=== PATIENT | female | born 1975 | race Caucasian/White ===

== ENCOUNTER 2017-07-29 13:11 | Emergency (ER) | payer BC ==
[2017-07-29 15:49] LABS: URINE BLOOD (Dip) POC 1+ (NEGATIVE); URINE GLUCOSE (Dip) POC Negative (NEGATIVE); URINE KETONES (Dip) POC Negative (NEGATIVE); URINE LEUKOCYTE EST (Dip) POC 1+ (NEGATIVE); URINE NITRITE (Dip) POC Negative (NEGATIVE); URINE TOTAL PROTEIN POC Negative (NEGATIVE)
[2017-07-29] MEDS: KETOROLAC 30 MG INJ IM (15:55)
[2017-07-29] MEDS: DIAZEPAM 2 MG TAB PO (16:31)
== END 2017-07-29 17:02 | disposition home or self-care (01) ==
LOC: FTE 13:11
DX: M54.5 Low back pain (principal); R07.9 Chest pain, unspecified
CPT/HCPCS: 71045; 72072; 72100; 81003; 93005; 96372; 99284-25

== ENCOUNTER 2017-10-18 12:07 | Day surgery (SDC) | payer BC ==
[2017-10-18] MEDS ORDERED: MIDAZOLAM 1 MG/ML 2 ML INJ (13:11)
[2017-10-18] MEDS ORDERED: LIDOCAINE 2% (SDV) 5 ML INJ (13:11)
[2017-10-18] MEDS ORDERED: PROPOFOL 20 ML (13:11)
== END 2017-10-18 15:36 | disposition home or self-care (01) ==
LOC: GIL 12:07
DX: K29.70 Gastritis, unspecified, without bleeding (principal); K44.9 Diaphragmatic hernia without obstruction or gangrene
CPT/HCPCS: 43239; 84703; 88305; 88312; 88313

== ENCOUNTER 2018-02-25 16:21 | Emergency (ER) | payer BC ==
[2018-02-25] MEDS: SOD CHLORIDE 0.9% 1,000 ML IV (17:14)
[2018-02-25] MEDS: KETOROLAC 15 MG INJ IV (17:15)
[2018-02-25] MEDS: LORAZEPAM 2 MG INJ IV (17:15)
[2018-02-25 17:17] LABS: ADD MAN DIFF? NO
[2018-02-25 17:20] LABS: BASOPHIL # 0.1 10^3/ul (0.0-0.1); BASOPHILS % 0.6 % (0.0-2.0); EOSINOPHILS # 0.1 10^3/ul (0.0-0.5); EOSINOPHILS % 0.7 % (0.0-7.0); HEMATOCRIT 38.3 % (37.0-47.0); HEMOGLOBIN 12.7 g/dl (12.0-16.0); LYMPHOCYTES # 3.1 10^3/ul (0.8-2.9); LYMPHOCYTES % 24.9 % (15.0-51.0); MEAN CORPUSCULAR HEMOGLOBIN 28.6 pg (29.0-33.0); MEAN CORPUSCULAR HGB CONC 33.2 g/dl (32.0-37.0); MEAN CORPUSCULAR VOLUME 86.3 fl (82.0-101.0); MEAN PLATELET VOLUME 8.6 fl (7.4-10.4); MONOCYTE # 0.8 10^3/ul (0.3-0.9); MONOCYTES % 6.1 % (0.0-11.0); NEUTROPHIL # 8.5 10^3/ul (1.6-7.5); NEUTROPHILS % 67.4 % (39.0-77.0); PLATELET COUNT 399 10^3/UL (140-415); RED BLOOD COUNT 4.44 10^6/ul (4.20-5.40); RED CELL DISTRIBUTION WIDTH 12.8 % (11.5-14.5)
[2018-02-25 17:20] LABS: WHITE BLOOD COUNT 12.6 10^3/ul (4.8-10.8)
[2018-02-25 17:25] LABS: ADD UMIC YES; UR ASCORBIC ACID NEGATIVE (NEGATIVE); UR BACTERIA FEW /HPF (NONE SEEN); UR BILIRUBIN (Dip) NEGATIVE (NEGATIVE); UR BLOOD (Dip) 1+ mg/dL (NEGATIVE); UR CLARITY CLEAR (CLEAR); UR COLOR COLORLESS (YELLOW); UR GLUCOSE (Dip) NEGATIVE (NEGATIVE); UR KETONES (Dip) NEGATIVE (NEGATIVE); UR LEUKOCYTE ESTERASE (Dip) NEGATIVE Leu/ul (NEGATIVE); UR NITRITE (Dip) NEGATIVE (NEGATIVE); UR RBC 2 /HPF (0-5); UR SPECIFIC GRAVITY (Dip) 1.002 (1.003-1.030); UR SQUAMOUS EPITHELIAL CELL FEW /HPF (FEW); UR TOTAL PROTEIN (Dip) NEGATIVE (NEGATIVE); UR UROBILINOGEN (Dip) NEGATIVE (NEGATIVE); UR WBC 0 /HPF (0-5)
[2018-02-25 17:40] LABS: ALANINE AMINOTRANSFERASE 103 IU/L (13-69); ALBUMIN 4.4 g/dl (3.3-4.9); ALBUMIN/GLOBULIN RATIO 1.12; ALKALINE PHOSPHATASE 96 IU/L (42-121); ANION GAP 14 (8-16); ASPARTATE AMINO TRANSFERASE 34 IU/L (15-46); BILIRUBIN,INDIRECT 0.3 mg/dl (0-1.1); BILIRUBIN,TOTAL 0.3 mg/dl (0.2-1.3); BLOOD UREA NITROGEN 8 mg/dl (7-20); CALCIUM 9.4 mg/dl (8.4-10.2); CARBON DIOXIDE 29 mmol/L (21-31); CHLORIDE 101 mmol/L (97-110); CREATININE 0.59 mg/dl (0.44-1.00); GLUCOSE 103 mg/dl (70-220); LIPASE 52 U/L (23-300); POTASSIUM 3.8 mmol/L (3.5-5.1); PROTIME 13.3 Sec (11.9-14.9); SODIUM 140 mmol/L (135-144); TOTAL PROTEIN 8.3 g/dl (6.1-8.1)
[2018-02-25 17:41] LABS: PARTIAL THROMBOPLASTIN TIME 32.5 Sec (23.0-35.0)
[2018-02-25 17:51] LABS: TROPONIN-I < 0.012 ng/ml (0.000-0.120)
[2018-02-25 19:01] LABS: D-DIMER 422.45 ng/ml (<460)
== END 2018-02-25 19:02 | disposition home or self-care (01) ==
LOC: E/R 16:21
DX: F32.1 Major depressive disorder, single episode, moderate (principal); F43.20 Adjustment disorder, unspecified
CPT/HCPCS: 36415; 71045; 80053; 81001; 83690; 84484; 84703; 85025; 85378; 85610; 85730; 93005; 96374; 96375; 99285-25

== ENCOUNTER 2018-04-02 10:44 | Emergency (ER) | payer BC ==
[2018-04-02] MEDS ORDERED: KETOROLAC 30 MG INJ IM (11:45)
[2018-04-02] MEDS ORDERED: ONDANSETRON (ODT) 4 MG TAB ODT (11:47)
[2018-04-02 12:15] LABS: ADD MAN DIFF? NO
[2018-04-02] MEDS: ONDANSETRON 4 MG INJ IV (12:16)
[2018-04-02] MEDS: KETOROLAC 30 MG INJ IV (12:17)
[2018-04-02 12:18] LABS: BASOPHILS % 0.4 % (0.0-2.0); EOSINOPHILS # 0.1 10^3/ul (0.0-0.5); EOSINOPHILS % 0.7 % (0.0-7.0); HEMATOCRIT 35.6 % (37.0-47.0); HEMOGLOBIN 12.1 g/dl (12.0-16.0); LYMPHOCYTES # 2.6 10^3/ul (0.8-2.9); LYMPHOCYTES % 26.1 % (15.0-51.0); MEAN CORPUSCULAR HEMOGLOBIN 29.6 pg (29.0-33.0); MEAN PLATELET VOLUME 8.4 fl (7.4-10.4); MONOCYTE # 0.5 10^3/ul (0.3-0.9); MONOCYTES % 5.1 % (0.0-11.0); NEUTROPHIL # 6.8 10^3/ul (1.6-7.5); NEUTROPHILS % 67.5 % (39.0-77.0); PLATELET COUNT 410 10^3/UL (140-415); RED BLOOD COUNT 4.09 10^6/ul (4.20-5.40); RED CELL DISTRIBUTION WIDTH 12.8 % (11.5-14.5)
[2018-04-02 12:18] LABS: WHITE BLOOD COUNT 10.1 10^3/ul (4.8-10.8)
[2018-04-02 12:31] LABS: ADD UMIC NO; UR ASCORBIC ACID 20 mg/dL (NEGATIVE); UR BILIRUBIN (Dip) NEGATIVE (NEGATIVE); UR BLOOD (Dip) NEGATIVE (NEGATIVE); UR CLARITY CLEAR (CLEAR); UR COLOR YELLOW (YELLOW); UR GLUCOSE (Dip) NEGATIVE (NEGATIVE); UR KETONES (Dip) NEGATIVE (NEGATIVE); UR LEUKOCYTE ESTERASE (Dip) NEGATIVE Leu/ul (NEGATIVE); UR NITRITE (Dip) NEGATIVE (NEGATIVE); UR SPECIFIC GRAVITY (Dip) 1.012 (1.003-1.030); UR TOTAL PROTEIN (Dip) NEGATIVE (NEGATIVE); UR UROBILINOGEN (Dip) NEGATIVE (NEGATIVE)
[2018-04-02 12:35] LABS: ALANINE AMINOTRANSFERASE 32 IU/L (13-69); ALBUMIN 4.6 g/dl (3.3-4.9); ALBUMIN/GLOBULIN RATIO 1.43; ALKALINE PHOSPHATASE 72 IU/L (42-121); ANION GAP 11 (5-13); ASPARTATE AMINO TRANSFERASE 18 IU/L (15-46); BILIRUBIN,INDIRECT 0.1 mg/dl (0-1.1); BILIRUBIN,TOTAL 0.1 mg/dl (0.2-1.3); BLOOD UREA NITROGEN 8 mg/dl (7-20); CALCIUM 9.8 mg/dl (8.4-10.2); CARBON DIOXIDE 28 mmol/L (21-31); CHLORIDE 105 mmol/L (97-110); Estimated GFR > 60 mL/min (>60); GLUCOSE 100 mg/dl (70-220); LIPASE 65 U/L (23-300); POTASSIUM 3.8 mmol/L (3.5-5.1); SODIUM 144 mmol/L (135-144); TOTAL PROTEIN 7.8 g/dl (6.1-8.1)
== END 2018-04-02 13:23 | disposition home or self-care (01) ==
LOC: FTE 10:44
DX: K29.70 Gastritis, unspecified, without bleeding (principal); I10 Essential (primary) hypertension
CPT/HCPCS: 36415; 74176; 80053; 81003; 81025; 83690; 85025; 96374; 96375; 99285-25

== ENCOUNTER 2018-07-19 04:34 | Emergency (ER) | payer BC ==
[2018-07-19 05:06] LABS: ADD MAN DIFF? NO
[2018-07-19 05:11] LABS: WHITE BLOOD COUNT 10.7 10^3/ul (4.8-10.8)
[2018-07-19 05:11] LABS: BASOPHIL # 0.1 10^3/ul (0.0-0.1); BASOPHILS % 0.7 % (0.0-2.0); EOSINOPHILS # 0.2 10^3/ul (0.0-0.5); EOSINOPHILS % 1.6 % (0.0-7.0); HEMATOCRIT 37.1 % (37.0-47.0); HEMOGLOBIN 12.3 g/dl (12.0-16.0); LYMPHOCYTES # 4.3 10^3/ul (0.8-2.9); LYMPHOCYTES % 40.3 % (15.0-51.0); MEAN CORPUSCULAR HEMOGLOBIN 29.8 pg (29.0-33.0); MEAN CORPUSCULAR HGB CONC 33.2 g/dl (32.0-37.0); MEAN CORPUSCULAR VOLUME 89.8 fl (82.0-101.0); MONOCYTE # 0.6 10^3/ul (0.3-0.9); MONOCYTES % 5.6 % (0.0-11.0); NEUTROPHIL # 5.5 10^3/ul (1.6-7.5); NEUTROPHILS % 51.5 % (39.0-77.0); PLATELET COUNT 475 10^3/UL (140-415); RED BLOOD COUNT 4.13 10^6/ul (4.20-5.40); RED CELL DISTRIBUTION WIDTH 12.2 % (11.5-14.5)
[2018-07-19] MEDS: ONDANSETRON 4 MG INJ IV (05:24)
[2018-07-19 05:28] LABS: ALANINE AMINOTRANSFERASE 27 IU/L (13-69); ALBUMIN 4.7 g/dl (3.3-4.9); ALKALINE PHOSPHATASE 63 IU/L (42-121); ANION GAP 17 (5-13); ASPARTATE AMINO TRANSFERASE 27 IU/L (15-46); BLOOD UREA NITROGEN 8 mg/dl (7-20); CALCIUM 10.2 mg/dl (8.4-10.2); CARBON DIOXIDE 26 mmol/L (21-31); CHLORIDE 102 mmol/L (97-110); CREATININE 0.56 mg/dl (0.44-1.00); Estimated GFR > 60 mL/min (>60); GLUCOSE 111 mg/dl (70-220); POTASSIUM 3.9 mmol/L (3.5-5.1); SODIUM 145 mmol/L (135-144); TOTAL PROTEIN 8.6 g/dl (6.1-8.1)
[2018-07-19 05:39] LABS: B-TYPE NATRIURETIC PEPTIDE < 11 PG/ML (0-125); TROPONIN-I < 0.012 ng/ml (0.000-0.120)
[2018-07-19] MEDS: LORAZEPAM 2 MG INJ IV (06:04)
== END 2018-07-19 06:47 | disposition home or self-care (01) ==
LOC: E/R 04:34
DX: F41.9 Anxiety disorder, unspecified (principal); I10 Essential (primary) hypertension
CPT/HCPCS: 36415; 71045; 80053; 83880; 84484; 85025; 93005; 96374; 96375; 99285-25

== ENCOUNTER 2018-12-13 19:39 | Emergency (ER) | payer OTHER, BC ==
[2018-12-13] MEDS: LORAZEPAM 2 MG INJ IV (23:41)
[2018-12-13 23:42] LABS: ADD MAN DIFF? NO
[2018-12-13 23:45] LABS: WHITE BLOOD COUNT 12.3 10^3/ul (4.8-10.8)
[2018-12-13 23:45] LABS: BASOPHIL # 0.1 10^3/ul (0.0-0.1); BASOPHILS % 0.7 % (0.0-2.0); EOSINOPHILS # 0.2 10^3/ul (0.0-0.5); HEMATOCRIT 33.3 % (37.0-47.0); HEMOGLOBIN 10.7 g/dl (12.0-16.0); LYMPHOCYTES # 4.7 10^3/ul (0.8-2.9); LYMPHOCYTES % 38.1 % (15.0-51.0); MEAN CORPUSCULAR HEMOGLOBIN 29.2 pg (29.0-33.0); MEAN CORPUSCULAR HGB CONC 32.1 g/dl (32.0-37.0); MEAN PLATELET VOLUME 8.8 fl (7.4-10.4); MONOCYTE # 0.7 10^3/ul (0.3-0.9); MONOCYTES % 5.9 % (0.0-11.0); NEUTROPHIL # 6.5 10^3/ul (1.6-7.5); PLATELET COUNT 478 10^3/UL (140-415); RED BLOOD COUNT 3.66 10^6/ul (4.20-5.40); RED CELL DISTRIBUTION WIDTH 12.3 % (11.5-14.5)
[2018-12-13 23:52] LABS: ANION GAP 8 (5-13); BLOOD UREA NITROGEN 8 mg/dl (7-20); CALCIUM 9.8 mg/dl (8.4-10.2); CARBON DIOXIDE 29 mmol/L (21-31); CHLORIDE 107 mmol/L (97-110); CREATININE 0.55 mg/dl (0.44-1.00); Estimated GFR > 60 mL/min (>60); GLUCOSE 92 mg/dl (70-220); SODIUM 144 mmol/L (135-144)
[2018-12-14 00:04] LABS: TROPONIN-I < 0.012 ng/ml (0.000-0.120)
== END 2018-12-14 01:28 | disposition home or self-care (01) ==
LOC: E/R 12-14 01:28
DX: R07.9 Chest pain, unspecified (principal); I10 Essential (primary) hypertension
CPT/HCPCS: 36415; 71045; 80048; 84484; 85025; 93005; 96374; 99285-25